=== PATIENT | female | born 2000 | race African-American/Black ===

== ENCOUNTER 2023-08-02 22:34 | Inpatient (IN) ==
[2023-08-02 22:57] LABS: AMNISURE ROM TEST THERE IS A RUPTURE (NO RUPTURE)
--- NOTE | 2023-08-02 23:18 | DR.PREG ---
HPI Time seen Time Seen by Provider: 08/02/23 23:17 [facility] Labs Reviewed Laboratory: Placental [id number] There is a rupture (NO RUPTURE) 08/02/23 22:45 Opioid Opioid Risk Tool Total: 0 Total Score Risk Category: Low Risk Copyright: Jesús MARTIN predicting aberrant behaviors Discharge Plan Discharge Plan Patient Disposition: HOME, SELF-CARE Condition: Stable Health Concerns: Post Hospitalization: new medications and changes needed to prevent readmission or further decline. Pt educated and given instructions on all concerns. Plan of Treatment: Continue with present treatment and follow up plan. Pt is to keep follow up appointment as instructed and take medications as ordered. Follow ups/Referrals Follow ups/Referrals: SALLIE NUNN [Primary Care Provider] - 3 days Instructions Stand Alone Forms: Post Hospital Follow Up Care
[2023-08-02 23:37] VITALS: BMI 25.9
[2023-08-02] MEDS ORDERED: LR 1,000 ML IV 1,000 ML IV SCH (23:45)
[2023-08-02] MEDS ORDERED: NUBAIN INJ 20 MG AMP IVP PRN (23:50)
[2023-08-02] MEDS ORDERED: ZOFRAN INJ 4 MG VIAL IVP PRN (23:50)
[2023-08-02] MEDS ORDERED: OXYTOCIN 20 UNIT/1,000 ML-NS 20 UNIT/1,000 ML PLAST..BAG IV PRN (23:50)
[2023-08-02] MEDS ORDERED: REGLAN INJ 10 MG VIAL IVP PRN (23:50)
[2023-08-02] MEDS ORDERED: PITOCIN IVP ONE (23:50)
[2023-08-03 00:01] LABS: BASOPHILS # (AUTO) 0.1 X10^3/uL (0.0-0.1); BASOPHILS % (AUTO) 0.6 % (0.2-1.0); EOSINOPHILS # (AUTO) 0.1 x10^3/uL (0.0-0.2); EOSINOPHILS % (AUTO) 0.7 % (0.9-2.9); HEMATOCRIT 36.9 % (36.0-47.0); HEMOGLOBIN 11.9 g/dL (12.0-16.0); LYMPHOCYTES # (AUTO) 1.8 X10^3/uL (1.3-2.9); LYMPHOCYTES % (AUTO) 14.7 % (21.0-51.0); MEAN CORPUSCULAR HEMOGLOBIN 28.8 pg (27.0-34.0); MEAN CORPUSCULAR HGB CONC 32.1 g/dL (33.0-35.0); MEAN CORPUSCULAR VOLUME 89.6 fL (80.0-100.0); MEAN PLATELET VOLUME 8.7 fL (7.4-11.0); MONOCYTES # (AUTO) 0.6 x10^3/uL (0.3-0.8); MONOCYTES % (AUTO) 5.4 % (0.0-13.0); NEUTROPHILS # (AUTO) 9.5 x10^3/uL (2.2-4.8); NEUTROPHILS % (AUTO) 78.6 % (42.0-75.0); PLATELET COUNT 371 X10^3/uL (150.0-450.0); RED BLOOD COUNT 4.12 X10^6/uL (3.5-5.4); RED CELL DISTRIBUTION WIDTH 14.7 % (11.6-16.5); WHITE BLOOD COUNT 12.1 X10^3/uL (3.6-10.0)
[2023-08-03 00:04] LABS: BLOOD UREA NITROGEN 8 mg/dL (7-18); CALCIUM 8.5 mg/dL (8.5-10.1); CARBON DIOXIDE 24.8 mmol/L (21-32); CHLORIDE 102 mmol/L (98-107); CREATININE 0.58 mg/dL (0.55-1.02); GLUCOSE 88 mg/dL (65-99); POTASSIUM 3.6 mmol/L (3.5-5.1); SODIUM 136 mmol/L (136-145); eGFR NON BLACK RACES > 60 (>60)
[2023-08-03] MEDS ORDERED: BETADINE SOLN ONE (00:48)
[2023-08-03] MEDS ORDERED: MOTRIN TAB 800 MG PO PRN (03:44)
[2023-08-03] MEDS ORDERED: OXYTOCIN 20 UNIT/1,000 ML-NS 20 UNIT/1,000 ML PLAST..BAG IV SCH (03:45)
[2023-08-03] MEDS ORDERED: AMBIEN PO PRN (04:29)
[2023-08-03] MEDS ORDERED: DERMOPLAST PAIN RELIEF SPRAY TOP PRN (04:29)
[2023-08-03] MEDS ORDERED: MILK OF MAGNESIA PO PRN (04:29)
[2023-08-03 05:28] LABS: HEMATOCRIT 36.9 % (36.0-47.0); HEMOGLOBIN 11.9 g/dL (12.0-16.0)
[2023-08-03] MEDS: PRENATAL PLUS PO SCH (09:15)
[2023-08-04 04:46] LABS: HEMATOCRIT 33.7 % (36.0-47.0); HEMOGLOBIN 10.9 g/dL (12.0-16.0)
[2023-08-04] MEDS: PRENATAL PLUS PO SCH (08:54)
[2023-08-04] MEDS ORDERED: NS 100 ML IV 100 ML with VENOFER 400 MG IV NR ×2 (09:15)
[2023-08-04 12:47] VITALS: BP 121/68; PULSE 68; RESP 18; TEMP 97.3; O2SAT 99
== END 2023-08-04 14:10 | disposition home or self-care (01) | DRG 807 ==
LOC: ER 22:34 → LD 23:36 → MED/SURG 08-03 04:35
PROVIDERS: ADMIT Obstetrics & Gynecology Obstetrics; ATTEND Obstetrics & Gynecology Obstetrics